=== PATIENT | male | born 1980 | race Caucasian/White ===

== ENCOUNTER 2016-08-15 22:20 | Emergency (ER) | payer SELFPAY ==
[~2016-08-15 22:20] MED LIST: CIPR500T4 PO; IBUP-232 PO; ZOFR4TAB3 SL
[2016-08-15 22:22] VITALS: BP 138/92; PULSE 87; RESP 16; TEMP 98.1; O2SAT 99
== END 2016-08-15 23:02 | disposition left against medical advice (07) ==
LOC: NED 22:20
DX: Z53.21 Procedure and treatment not carried out due to patient leaving prior to being seen by health care provider (principal)
CPT/HCPCS: 99281

== ENCOUNTER 2016-08-16 23:47 | Emergency (ER) | payer BC ==
[~2016-08-16] VITALS: Ht 172.7 cm; Wt 94.0 kg
[2016-08-16 23:50] VITALS: BP 138/79; PULSE 98; RESP 18; TEMP 98.7; O2SAT 96
[2016-08-17] MEDS ORDERED: METR500T10 PO (00:35)
[2016-08-17] MEDS ORDERED: PRED20 PO (00:35)
[2016-08-17] MEDS ORDERED: DIPH25CA PO (00:35)
[2016-08-17] MEDS ORDERED: diphenhydrAMINE HCL 50 MG/ML VIAL ONE (00:41)
[2016-08-17] MEDS ORDERED: diphenhydrAMINE HCL 50 MG/ML VIAL IV PUSH ONE (00:45)
[2016-08-17] MEDS ORDERED: SODIUM CHLOR 0.9% 1000 ML INJ 1,000 ML IV ONE (00:45)
[2016-08-17 00:48] VITALS: O2SAT 96
--- NOTE | 2016-08-17 01:04 | RADRPT ---
EXAM DATE/TIME: 08/17/2016 00:50 [place] COMPARISON: CHEST SINGLE AP, August 23, 2015, 10:35. INDICATIONS : Body rash. MEDICAL HISTORY : None. SURGICAL HISTORY : None. ENCOUNTER: Initial ACUITY: 1 day PAIN SCORE: 0/10 LOCATION: Bilateral chest FINDINGS: A single view of the chest demonstrates the lungs to be symmetrically aerated without evidence of mas s, infiltrate or effusion. The cardiomediastinal contours are unremarkable. Osseous structures are intact. CONCLUSION: 1. No acute cardiopulmonary disease. Anup Morejon MD on August 17, 2016 at 1:03 Board Certified Radiologist. This report was verified electronically.
[2016-08-17 01:32] LABS: AUTOMATED NEUTROPHIL # 12.9 TH/MM3 (1.8-7.7); BASOPHIL % 0.3 % (0.0-2.0); EOSINOPHIL % 0.1 % (0.0-4.0); HEMATOCRIT 50.4 % (39.0-51.0); HEMO FLAGS DIFF FINAL; LYMPH % 6.4 % (9.0-44.0); LYMPHOCYTE # 0.9 TH/MM3 (1.0-4.8); MEAN CORPUSCULAR HEMOGLOBIN 29.6 PG (27.0-34.0); MEAN CORPUSCULAR HGB CONC 34.8 % (32.0-36.0); MONO % 5.8 % (0.0-8.0); NEUT % 87.4 % (16.0-70.0); PLATELET COUNT 266 TH/MM3 (150-450); RED BLOOD COUNT 5.92 MIL/MM3 (4.50-5.90); RED CELL DISTRIBUTION WIDTH 13.2 % (11.6-17.2); WHITE BLOOD COUNT 14.8 TH/MM3 (4.0-11.0)
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
[2016-08-17] MEDS ORDERED: methylPREDNISolone SOD SUCC 125 MG/2 ML VIAL IV PUSH ONE (01:45)
[2016-08-17 01:56] LABS: ALKALINE PHOSPHATASE 73 U/L (45-117)
[2016-08-17 01:57] LABS: ALT (GPT) 29 U/L (12-78); ANION GAP 13 MEQ/L (5-15); AST (GOT) 37 U/L (15-37); BICARBONATE 24.4 MEQ/L (21.0-32.0); BLOOD UREA NITROGEN 16 MG/DL (7-18); CHLORIDE 101 MEQ/L (98-107); GLOMERULAR FILTRATION RATE 57 ML/MIN (>89); MAGNESIUM 2.2 MG/DL (1.5-2.5); SODIUM (NA) 138 MEQ/L (136-145)
[2016-08-17 01:58] LABS: POTASSIUM 3.9 MEQ/L (3.5-5.1)
[2016-08-17] MEDS ORDERED: MEDR4PAK PO (03:01)
== END 2016-08-17 03:30 | disposition home or self-care (01) ==
LOC: NEPE 23:47
DX: L50.9 Urticaria, unspecified (principal); R19.7 Diarrhea, unspecified
CPT/HCPCS: 71010; 80053; 83735; 85025; 86140; 96374; 96375; 99283; J1200; J2930; J7030